=== PATIENT | male | born 1970 | race African-American/Black ===

== ENCOUNTER 2021-10-05 14:40 | Emergency (ER) | payer BC ==
[2021-10-05 16:48] LABS: C. TRACHOMATIS BY PCR DETECTED; N. GONORRHOEAE BY PCR NOT DETECTED
== END 2021-10-05 16:10 | disposition home or self-care (01) ==
LOC: JD.ED 14:40
DX: Z11.3 Encounter for screening for infections with a predominantly sexual mode of transmission (principal)
CPT/HCPCS: 81001; 87491; 87591; 99284

== ENCOUNTER 2021-11-14 16:39 | Emergency (ER) | payer BC ==
[2021-11-14 17:55] LABS: CORONAVIRUS COVID-19 NAA NEGATIVE (NEGATIVE)
== END 2021-11-14 18:30 | disposition home or self-care (01) ==
LOC: JD.ED 16:39
DX: R06.02 Shortness of breath (principal); I10 Essential (primary) hypertension; K21.9 Gastro-esophageal reflux disease without esophagitis; Z79.899 Other long term (current) drug therapy; Z20.822 Contact with and (suspected) exposure to COVID-19
CPT/HCPCS: 0240U; 36415; 71045; 80053; 84484; 85025; 85379; 93005; 99285; 93010; 99284